=== PATIENT | female | born 1975 | race Hispanic/Latino ===

== ENCOUNTER 2017-03-05 16:48 | Emergency (ER) | payer SELFPAY ==
[~2017-03-05] VITALS: Ht 157.5 cm; Wt 66.6 kg
[~2017-03-05 16:48] MED LIST: CIPRO500 MG OR; NO MEDS; PERCOCET 5/325M1 TAB OR
[2017-03-05 18:13] LABS: URINE BLOOD DIPSTICK SMALL (NEGATIVE); URINE COLOR YELLOW; URINE GLUCOSE - DIPSTICK NEGATIVE (NEGATIVE); URINE KETONE NEGATIVE (NEGATIVE); URINE LEUK ESTERASE NEGATIVE (NEGATIVE); URINE NITRITE - DIPSTICK NEGATIVE (Negative); URINE PH 5.5 (4.5-8.0); URINE PROTEIN - DIPSTICK NEGATIVE (NEG-TRACE); URINE SPECIFIC GRAVITY >=1.030; URINE UROBILINOGEN - DIPSTICK 0.2 E.U./dL (0.2)
[2017-03-05 18:18] LABS: URINE BILIRUBIN - DIPSTICK NEGATIVE (NEGATIVE); URINE CLARITY HAZY
[2017-03-05 18:24] LABS: URINE SQUAMOUS EPITHELIAL CELL MANY EPI/hpf (0-FEW)
[2017-03-05 18:25] LABS: URINE MUCUS MANY hpf (NONE-FEW)
[2017-03-05 19:39] LABS: HEMATOCRIT 37.3 % (37.0-47.0); HEMOGLOBIN 12.5 g/dl (12.0-16.0); IMMATURE GRANULOCYTES 0.2 % (0.0-1.0); MEAN CORPUSCULAR HGB 31.5 pG CALC (26.0-32.0); MEAN CORPUSCULAR HGB CONC 33.5 g/L CALC (32.0-36.0); NEUT# 2.79 thou/uL (2.00-7.15); RED BLOOD COUNT 3.97 mill/uL (4.20-5.60)
[2017-03-05 20:00] LABS: ALBUMIN 3.8 g/dL (3.2-5.0); ALKALINE PHOSPHATASE 96 u/l (38-126); ANION GAP 15 (6-22 (CALC)); BILIRUBIN, TOTAL 0.3 mg/dL (0.0-1.4); BUN 8 mg/dL (7-17); BUN/CREATININE RATIO 13 (12-20 (CALC)); CALCIUM 8.6 mg/dL (8.4-10.2); CARBON DIOXIDE 26 mmol/l (22-30); CHLORIDE 101 mmol/l (95-108); CREATININE 0.6 mg/dL (0.5-1.0); GFR > 60 ML/MIN (>=60 (CALC)); GFR FOR AFR.AMER. > 60 ML/MIN (>=60 (CALC)); GLUCOSE 110 mg/dL (65-105); SGOT/AST 26 u/l (14-36); SGPT/ALT 48 u/l (9-52); SODIUM 138 mmol/l (137-146)
[2017-03-05 20:01] LABS: AMYLASE 48 u/l (30-110); LIPASE 75 u/l (23-300)
[2017-03-05] MEDS ORDERED: PRILOSEC20 MG PO (21:11)
[2017-03-05 21:40] VITALS: BP 107/67
== END 2017-03-05 21:40 | disposition home or self-care (01) | DRG 392 ==
LOC: ED 16:48
PROVIDERS: Emergency Medicine
DX: R10.13 Epigastric pain (principal); M54.9 Dorsalgia, unspecified; R11.0 Nausea; R19.7 Diarrhea, unspecified
CPT/HCPCS: S0164